=== PATIENT | male | born 1995 | race African-American/Black ===

== ENCOUNTER 2021-05-21 16:36 | Observation (INO) ==
[2021-05-21] MEDS ORDERED: ceFAZolin 2,000 MG/50 ML DUPLEX IV ONE (16:43)
[2021-05-21] MEDS ORDERED: MORPHINE 2 MG/1 ML SYRINGE IV STA (16:44)
[2021-05-21] MEDS ORDERED: ONDANSETRON 4 MG/2 ML VIAL IV STA (16:44)
[2021-05-21] MEDS ORDERED: LACTATED RINGERS 1,000 ML IV ONE (16:45)
[2021-05-21 16:55] LABS: Basophils # 0.1 10*3/uL (0.0-0.2); Basophils % 0.6 % (0.0-0.8); Eosinophils # 0.2 10*3/uL (0.0-0.87); Eosinophils % 1.7 % (0.00-10.9); Hematocrit 41.5 VOL% (42.0-52.0); Hemoglobin 13.2 GM/DL (14.0-18.0); Immature Granulocytes % 0.8 %; Immature Granulocytes Absolute 0.08 #; Lymphocytes # 2.1 10*3/uL (1.4-4.0); Lymphocytes % 20.1 % (21.2-54.2); Mean Corpuscular HGB Conc 31.8 GM/DL (32-36); Mean Corpuscular Volume 87.4 FL (87-102); Monocytes % 7.3 % (1.7-12.7); Neutrophils % 69.5 % (38.7-73.9); Platelet Count 180 T/CUMM (130-400); Red Blood Count 4.75 MC/CUMM (3.8-5.5); Red Cell Distribution Width 11.9 % (9.3-17.3); White Blood Count 10.4 T/CUMM (4-12)
[2021-05-21] MEDS ORDERED: ceFAZolin 1,000 MG VIAL ONE (17:01)
[2021-05-21] MEDS ORDERED: SODIUM CHLORIDE 0.9% 0 ML IV ONE (17:02)
[2021-05-21] MEDS ORDERED: DIPH/TET/ACEL PERT BOOSTER VACCINE 0.5 ML VIAL IM ONE (17:03)
[2021-05-21 17:20] LABS: Albumin 3.8 G/DL (3.4-5.0); Bilirubin,Total 0.4 MG/DL (0.20-1.00); Calcium 8.8 MG/DL (8.5-10.1); Osmolality,Calculated 279.5 MOS/KG (273-304); Potassium 3.6 MMOL/L (3.5-5.1); Total Protein 6.7 G/DL (6.4-8.2)
[2021-05-21] MEDS ORDERED: ACETAMINOPHEN 325 MG TABLET PO PRN (18:15)
[2021-05-21] MEDS ORDERED: KETOROLAC 30 MG/1 ML VIAL IV PRN (18:15)
[2021-05-21] MEDS ORDERED: ONDANSETRON 4 MG/2 ML VIAL IV PRN (18:15)
[2021-05-21] MEDS ORDERED: HYDROmorphone 2 MG/1 ML VIAL IV PRN (18:15)
[2021-05-21] MEDS ORDERED: PROMETHAZINE 25 MG/1 ML VIAL IM PRN (18:15)
[2021-05-21] MEDS: LACTATED RINGERS 1,000 ML IV SCH (18:15)
[2021-05-21] MEDS: ceFAZolin 2,000 MG/50 ML DUPLEX IV SCH (20:17)
[2021-05-22] MEDS: LACTATED RINGERS 1,000 ML IV SCH ×2 (02:23→10:36)
[2021-05-22] MEDS: ceFAZolin 2,000 MG/50 ML DUPLEX IV SCH ×2 (04:17→12:35)
[2021-05-22 06:05] LABS: Calcium 8.8 MG/DL (8.5-10.1); Osmolality,Calculated 275.5 MOS/KG (273-304)
[2021-05-22 06:12] LABS: Basophils % 0.4 % (0.0-0.8); Eosinophils # 0.2 10*3/uL (0.0-0.87); Eosinophils % 1.8 % (0.00-10.9); Hemoglobin 13.5 GM/DL (14.0-18.0); Immature Granulocytes % 0.8 %; Immature Granulocytes Absolute 0.07 #; Lymphocytes # 2.4 10*3/uL (1.4-4.0); Lymphocytes % 25.4 % (21.2-54.2); Mean Corpuscular HGB Conc 30.3 GM/DL (32-36); Mean Corpuscular Volume 90.7 FL (87-102); Mean Platelet Volume 10.6 FL (9.6-12.0); Monocytes % 8.9 % (1.7-12.7); Neutrophils % 62.7 % (38.7-73.9); Platelet Count 178 T/CUMM (130-400); Red Blood Count 4.92 MC/CUMM (3.8-5.5); Red Cell Distribution Width 12.1 % (9.3-17.3); White Blood Count 9.3 T/CUMM (4-12)
[2021-05-22 06:20] LABS: Hematocrit 44.6 VOL% (42.0-52.0)
[2021-05-22] MEDS ORDERED: BACITRACIN OINT 0.9 GM PACK TOP ONE ×3 (08:23→09:35)
[2021-05-22] MEDS ORDERED: SEVOFLURANE 1 UNIT/15 MINUTE INH ONE (08:24)
[2021-05-22] MEDS ORDERED: LIDOCAINE 2% 5 ML VIAL ONE ×2 (08:24→09:20)
[2021-05-22] MEDS ORDERED: KETOROLAC 30 MG/1 ML VIAL ONE (08:24)
[2021-05-22] MEDS ORDERED: fentaNYL 100 MCG/2 ML VIAL ONE ×3 (08:24→10:18)
[2021-05-22] MEDS ORDERED: ACETAMINOPHEN INJ 1,000 MG/100 ML VIAL IV ONE (08:24)
[2021-05-22] MEDS ORDERED: propofoL 200 MG/20 ML VIAL IV ONE ×2 (08:24→09:20)
[2021-05-22] MEDS ORDERED: MIDAZOLAM 2 MG/2 ML VIAL ONE (08:25)
[2021-05-22] MEDS ORDERED: ceFAZolin 1,000 MG VIAL ONE (09:20)
[2021-05-22] MEDS ORDERED: BUPIVACAINE 0.5% 50 ML VIAL ONE (09:22)
[2021-05-22] MEDS ORDERED: LACTATED RINGERS 1,000 ML IV ONE (09:53)
[2021-05-22] MEDS: PANTOPRAZOLE 40 MG TABLET PO SCH ×2 (09:55→12:40)
[2021-05-22] MEDS ORDERED: HYDROmorphone 2 MG/1 ML VIAL IV PRN (10:32)
[2021-05-22] MEDS ORDERED: diphenhydrAMINE 50 MG/1 ML VIAL IV PRN (10:32)
[2021-05-22] MEDS ORDERED: PROMETHAZINE INJ 25 MG in SODIUM CHLORIDE 0.9% 50 ML IV PRN (10:32)
[2021-05-22] MEDS ORDERED: ONDANSETRON 4 MG/2 ML VIAL IV PRN (10:32)
[2021-05-22] MEDS ORDERED: ENOXAPARIN 40 MG/0.4 ML SYRINGE SUBCUT SCH (11:30)
[2021-05-22 13:53] VITALS: BP 112/68
== END 2021-05-22 14:50 | disposition home or self-care (01) ==
LOC: N.3E 16:36 → N.ED 16:36 → N.3E 18:08
PROVIDERS: ADMIT Surgery; ATTEND Surgery